=== PATIENT | female | born 2000 | race Hispanic/Latino ===

== ENCOUNTER 2023-02-01 12:58 | Outpatient (CLI) | payer OTHER ==
[2023-02-01 15:06] LABS: BHCG - Serum Negative (NEGATIVE); Pregs Control Background? CLEAR/WHITE (CLR/WHITE); Pregs Control Bar Appear? YES (CONTROL BAR)
== END 2023-02-01 12:59 | disposition home or self-care (01) ==
LOC: LABBT 12:58
PROVIDERS: ATTEND Student in an Organized Health Care Education/Training Program
DX: Z01.812 Encounter for preprocedural laboratory examination (principal); J35.01 Chronic tonsillitis
CPT/HCPCS: 84703; 85014

== ENCOUNTER 2023-02-06 11:36 | Day surgery (SDC) | payer OTHER ==
[2023-02-01 13:43] VITALS: BMI 29.2
[2023-02-06] MEDS ORDERED: fentaNYL 50 mcg/mL 1 mL Vial ONE ×4 (13:15→15:42)
[2023-02-06] MEDS ORDERED: Famotidine/PF 20 mg/2ml Vial ONE (13:48)
[2023-02-06] MEDS ORDERED: Midazolam HCl 2 mg/2 ml Vial ONE (13:49)
[2023-02-06] MEDS ORDERED: Dexamethasone 20 MG/5 ML VIAL ONE (13:53)
[2023-02-06] MEDS ORDERED: Metoclopramide HCl 10 MG/2 ML VIAL ONE (13:53)
[2023-02-06] MEDS ORDERED: PROPOFOL 200 MG/20 ML VIAL ONE (13:53)
[2023-02-06] MEDS ORDERED: Ondansetron PF 4 MG/2 ML Vial ONE ×2 (13:53→13:57)
[2023-02-06] MEDS ORDERED: Lidocaine 1% PF 5 ML VIAL ONE (13:53)
[2023-02-06] MEDS ORDERED: CEFAZOLIN 2 GM VIAL ONE (13:54)
[2023-02-06] MEDS ORDERED: Dexamethasone 4 mg/ml Vial ONE (13:57)
[2023-02-06] MEDS ORDERED: Meperidine HCl/PF 25 MG/ML VIAL ONE (13:57)
== END 2023-02-06 16:47 | disposition home or self-care (01) ==
LOC: SDC 11:36
PROVIDERS: ATTEND Student in an Organized Health Care Education/Training Program
PROC: 0CTPXZZ Resection of Tonsils, External Approach (ICD-10-PCS; principal; 2023-02-06)
DX: J03.91 Acute recurrent tonsillitis, unspecified (principal); J35.01 Chronic tonsillitis; J35.8 Other chronic diseases of tonsils and adenoids; Z79.899 Other long term (current) drug therapy; Z88.7 Allergy status to serum and vaccine
CPT/HCPCS: 88304; J1100; J2175; J2250; J2405; J2704; J2765; J3010; S0028